=== PATIENT | female | born 1930 | race Caucasian/White ===

== ENCOUNTER 2016-11-28 09:25 | Emergency (ER) | payer MEDICARE, OTHER ==
[~2016-11-28] VITALS: Ht 167.6 cm; Wt 81.6 kg
[2016-11-28 09:36] VITALS: BP 132/88
== END 2016-11-28 12:05 | disposition home or self-care (01) ==
LOC: ER 09:26
DX: S39.012A Strain of muscle, fascia and tendon of lower back, initial encounter (principal); I10 Essential (primary) hypertension; E11.9 Type 2 diabetes mellitus without complications; X58.XXXA Exposure to other specified factors, initial encounter; Y93.E5 Activity, floor mopping and cleaning; Y92.89 Other specified places as the place of occurrence of the external cause; Y99.8 Other external cause status
CPT/HCPCS: 96372; 99283; A4606; J1885; Z7610

== ENCOUNTER 2017-01-31 17:47 | Emergency (ER) | payer MEDICARE, OTHER ==
[~2017-01-31] VITALS: Ht 170.2 cm; Wt 81.6 kg
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
[2017-01-31] MEDS ORDERED: HYDROCODONE/APAP 5/325MG 1 EACH TABLET ONE (18:17)
[2017-01-31] MEDS ORDERED: HYDROCODONE/APAP 5/325MG 1 EACH TABLET PO ONE (18:30)
--- NOTE | 2017-01-31 18:45 | NUR ---
PAINTER DRUM AT BEDSIDE
[2017-01-31 18:59] LABS: CALCIUM, SERUM 9.6 mg/dL (8.5-10.1); CARBON DIOXIDE 30 mmol/L (21-32); CHLORIDE 105 mmol/L (98-107); CREATININE 0.8 mg/dL (0.6-1.3); GLUCOSE 122 mg/dL (74-106); POTASSIUM 4.3 mmol/L (3.5-5.1); SODIUM SERUM 142 mmol/L (136-145); UREA NITROGEN, BLOOD 14 mg/dL (7-18)
[2017-01-31] MEDS ORDERED: IV NS 0.9% 1,000 ML BAG IV ONE (19:00)
[2017-01-31 19:18] LABS: ALANINE AMINOTRANSFERASE 33 U/L (12-78); ALBUMIN 4.1 g/dL (3.4-5.0); ALKALINE PHOSPHATASE 47 U/L (46-116); ASPARTATE AMINOTRANSFERASE 26 U/L (15-37); BILIRUBIN,TOTAL 0.6 mg/dL (0.2-1.0); TOTAL PROTEIN, SERUM 7.4 g/dL (6.4-8.2)
--- NOTE | 2017-01-31 19:25 | NUR ---
PT TAKEN TO CT
[2017-01-31] MEDS ORDERED: IOHEXOL-300 100 ML VIAL IV ONE (19:29)
[2017-01-31] MEDS ORDERED: IV NS 0.45% 500 ML IV ONE (19:29)
--- NOTE | 2017-01-31 19:45 | NUR ---
PT BACK FROM CT
[2017-01-31 20:38] VITALS: BP 143/84
--- NOTE | 2017-01-31 20:38 | NUR ---
Patient discharged to home in stable condition. Written and verbal after care instructions given. Patient verbalizes understanding of instruction.
--- NOTE | 2017-01-31 20:38 | NUR ---
IV removed. Catheter intact and site benign. Pressure and 4x4 applied to site. No bleeding noted.
== END 2017-01-31 20:43 | disposition home or self-care (01) ==
LOC: ER 17:48
DX: S20.219A Contusion of unspecified front wall of thorax, initial encounter (principal); R10.84 Generalized abdominal pain; I10 Essential (primary) hypertension; E11.9 Type 2 diabetes mellitus without complications; V89.2XXA Person injured in unspecified motor-vehicle accident, traffic, initial encounter; Y93.89 Activity, other specified; Y92.488 Other paved roadways as the place of occurrence of the external cause; Y99.8 Other external cause status
CPT/HCPCS: 36415; 70450; 71010; 71260; 74160; 80053; 96360; 99285; A4606; J3490; J7030; Q9967; Z7610

== ENCOUNTER 2018-02-09 20:19 | Emergency (ER) | payer MEDICARE, OTHER ==
[~2018-02-09] VITALS: Ht 167.6 cm; Wt 81.6 kg
[2018-02-09 20:56] VITALS: BP 127/81
--- NOTE | 2018-02-09 21:05 | NUR ---
PT BIBSELF C/O RIGHT EYE PAIN. PT STATES "I FEEL LIKE SOMETHING IS IN MY EYE". PT HAS DIFFICULTY OPENING EYE.
--- NOTE | 2018-02-09 22:20 | NUR ---
Patient left without being seen by ER Physician
[2018-02-09] MEDS ORDERED: TETRACAINE HCL/PF 0.5% UD 2 ML BOTTLE OP ONE (22:30)
== END 2018-02-09 22:43 | disposition left against medical advice (07) ==
LOC: ER 20:37
DX: I10 Essential (primary) hypertension (principal); E11.9 Type 2 diabetes mellitus without complications; E03.9 Hypothyroidism, unspecified; Z85.3 Personal history of malignant neoplasm of breast; Z98.890 Other specified postprocedural states; Z98.49 Cataract extraction status, unspecified eye; Z53.21 Procedure and treatment not carried out due to patient leaving prior to being seen by health care provider
CPT/HCPCS: A4606; J7030; Z7610

== ENCOUNTER 2018-11-19 21:41 | Emergency (ER) | payer MEDICARE, OTHER ==
[~2018-11-19] VITALS: Ht 170.2 cm; Wt 72.6 kg
--- NOTE | 2018-11-19 22:23 | NUR ---
LOU FROM HOME WITH DAELIOTTHER. AAOX4. NO RESP DISTRESS NOTED. AMBULATORY. C/O GEN WEAKNESS AND CHEST PAIN. PT REPORTS THAT SHE HAS BEEN FEELING WEAK FOR THE PAST 2 MONTHS. SHE ALSO COMPLAINTS OF CHEST PAIN 6/10 REPORT FEELING OF MUSCLE ACHE. SHE ALSO COMPLAINS OF BACK PAIN WHICH ALSO FEELIN GLIKE A MUSCLE ACHE. PT PLACED ON MONITOR. AWAITING MF FOR EVAL. EKG DONE. LINE OBTAINED ON L AC 20G. BLOOD DRAWN AND SETN TO LAB. AWAITING FURTHER ORDERS
[2018-11-19 22:26] LABS: EOSINOPHILS % (AUTO) 1.3 % (0.0-6.0); HEMATOCRIT 40 % (33-45); HEMOGLOBIN 13.3 g/dL (11.5-14.8); LYMPHOCYTES # (AUTO) 1.7 /CMM (0.8-4.8); LYMPHOCYTES % (AUTO) 36.7 % (20.0-44.0); MEAN CORPUSCULAR HGB CONC 34 g/dl (31.0-36.0); MEAN CORPUSCULAR VOLUME 88 fL (82-100); MONOCYTES # (AUTO) 0.4 /CMM (0.1-1.30); MONOCYTES % (AUTO) 9.5 % (2.0-12.0); NEUTROPHILS # (AUTO) 2.4 /CMM (1.8-8.9); NEUTROPHILS % (AUTO) 51.5 % (43.0-81.0); PLATELET COUNT (AUTO) 214 /CMM (150-450); RED BLOOD CELL COUNT(AUTO) 4.54 MIL/uL (4.0-5.2); WHITE BLOOD COUNT (AUTO) 4.6 K/uL (4.3-11.0)
[2018-11-19 22:40] LABS: CALCIUM, SERUM 10.3 mg/dL (8.5-10.1); CARBON DIOXIDE 31 mmol/L (21-32); CHLORIDE 106 mmol/L (98-107); CREATININE 0.8 mg/dL (0.6-1.3); GLUCOSE 108 mg/dL (74-106); SODIUM SERUM 143 mmol/L (136-145); UREA NITROGEN, BLOOD 16 mg/dL (7-18)
[2018-11-19 22:59] LABS: ALANINE AMINOTRANSFERASE 26 U/L (12-78); ALKALINE PHOSPHATASE 80 U/L (46-116); ASPARTATE AMINOTRANSFERASE 17 U/L (15-37); B-TYPE NATRIURETIC PEPTIDE 62 PG/ML (0-125); BILIRUBIN,DIRECT 0.1 mg/dL (0.0-0.2); BILIRUBIN,TOTAL 0.4 mg/dL (0.2-1.0); TOTAL PROTEIN, SERUM 7.6 g/dL (6.4-8.2)
--- NOTE | 2018-11-19 23:44 | NUR ---
Patient discharged to home in stable condition. Written and verbal after care instructions given. Patient verbalizes understanding of instruction.IV removed. Catheter intact and site benign. Pressure and 4x4 applied to site. No bleeding noted. Pt ambulatory with a steady gait
[2018-11-19 23:45] VITALS: BP 117/80
== END 2018-11-19 23:45 | disposition home or self-care (01) ==
LOC: ER 21:45
DX: R53.1 Weakness (principal); I10 Essential (primary) hypertension; E11.9 Type 2 diabetes mellitus without complications; E03.9 Hypothyroidism, unspecified; Z85.3 Personal history of malignant neoplasm of breast; Z98.890 Other specified postprocedural states
CPT/HCPCS: 36415; 71045-TC; 80048-TC; 80076-TC; 83880; 84484-TC; 85025-TC; 85730-TC

== ENCOUNTER 2021-03-05 17:53 | Inpatient (IN) | payer MEDICARE, OTHER ==
[~2021-03-05] VITALS: Ht 165.1 cm; Wt 78.5 kg
--- NOTE | 2021-03-05 18:08 | NUR ---
TO ER BED 5, C/O FEVER, COUGH AND WORSENING SOB X 4 DAYS, AAOX3, BREATHING EVEN AND NON LABORED, CONNECTED TO MONITOR, APPLIED O2 2LPM, SATTING AT 98%.
[2021-03-05] MEDS ORDERED: DEXAMETHASONE SOD PHOSPHATE 6 MG in IV D5W 50 ML IV ONE (18:30)
--- NOTE | 2021-03-05 18:56 | NUR ---
FAMILY KAM CALLED AND LEFT CONTACT # [phone]
--- NOTE | 2021-03-05 19:05 | NUR ---
COVID ANTIGEN SWAB AND FLU SWAB DONE AND SENT TO LAB
--- NOTE | 2021-03-05 19:07 | NUR ---
COVID PCR SWAB DONE AND SENT
[2021-03-05] MEDS ORDERED: DEXAMETHASONE SOD PHOSPHATE 10 MG/ML VIAL ONE (19:18)
--- NOTE | 2021-03-05 19:26 | NUR ---
VERIFIED WITH DR SAYDA SUERO DECADRON IV PUSH 6MG.
[2021-03-05 19:42] LABS: D-DIMER 1.63 mg/L(FEU (0.17-0.50)
[2021-03-05 19:46] LABS: CREATINE KINASE, TOTAL 104 U/L (26-192)
[2021-03-05 19:48] LABS: C-REACTIVE PROTEIN 38.3 mg/dL (0.0-0.9)
--- NOTE | 2021-03-05 20:01 | NUR ---
COVID POSITIVE PER LAB
[2021-03-05 20:10] LABS: CALCIUM, SERUM 9.1 mg/dL (8.5-10.1); CARBON DIOXIDE 24 mmol/L (21-32); CHLORIDE 100 mmol/L (98-107); CREATININE 0.7 mg/dL (0.6-1.3); GLUCOSE 124 mg/dL (74-106); POTASSIUM 3.4 mmol/L (3.5-5.1); SODIUM SERUM 136 mmol/L (136-145); UREA NITROGEN, BLOOD 12 mg/dL (7-18)
[2021-03-05 20:17] LABS: BASOPHILS % (AUTO) 0.2 % (0.0-2.0); EOSINOPHILS % (AUTO) 0.3 % (0.0-6.0); HEMATOCRIT 35 % (33-45); LYMPHOCYTES # (AUTO) 0.4 K/uL (0.8-4.8); MEAN CORPUSCULAR HGB CONC 34 g/dl (31.0-36.0); MEAN CORPUSCULAR VOLUME 85 fL (82-100); MONOCYTES # (AUTO) 0.5 K/uL (0.1-1.30); NEUTROPHILS # (AUTO) 4.2 K/uL (1.8-8.9); NEUTROPHILS % (AUTO) 81.5 % (43.0-81.0); PLATELET COUNT (AUTO) 205 K/uL (150-450); RED BLOOD CELL COUNT(AUTO) 4.16 MIL/uL (4.0-5.2); WHITE BLOOD COUNT (AUTO) 5.1 K/uL (4.3-11.0)
[2021-03-05 20:23] LABS: ALANINE AMINOTRANSFERASE 17 U/L (12-78); ALKALINE PHOSPHATASE 49 U/L (46-116); ASPARTATE AMINOTRANSFERASE 26 U/L (15-37); BILIRUBIN,TOTAL 0.6 mg/dL (0.2-1.0); TOTAL PROTEIN, SERUM 7.1 g/dL (6.4-8.2)
[2021-03-05] MEDS ORDERED: MAGNESIUM HYDROXIDE 30 ML UDC PO PRN (21:30)
[2021-03-05] MEDS ORDERED: MAG HYDROX/AL HYDROX/SIMETH 30 ML UDC PO PRN (21:30)
[2021-03-05] MEDS ORDERED: ONDANSETRON HCL/PF 4 MG/2 ML VIAL IVP PRN (21:30)
[2021-03-05] MEDS ORDERED: Z GUARD REMEDY 4 OZ OINT TP PRN (21:30)
[2021-03-05] MEDS ORDERED: ACETAMINOPHEN 325 MG TABLET PO PRN (21:30)
--- NOTE | 2021-03-05 23:51 | NUR ---
ROOM 115-2
--- NOTE | 2021-03-06 00:54 | NUR ---
REPORT GIVEN TO JESSICA HDZ
--- NOTE | 2021-03-06 01:28 | NUR ---
PT TRANSFERRED UNDER ACLS
--- NOTE | 2021-03-06 01:35 | NUR ---
STRUCTURAL STEEL EQUIPMENT ERECTOR NOTES PATIENT ARRIVED ON UNIT WITH ER NURSE VIA CORY. PATIENT LAYING AWAKE IN BED. A/OX4. PATIENT WITH REGULAR AND UNLABORED BREATHING ON 3 LPM VIA NASAL CANULA, TOLERATED WELL. NO SIGNS AND SYMPTOMS OF DISTRESS NOTED AT THIS TIME. NO COMPLAINS OF PAIN OR DISCOMFORT NOTED AT THIS TIME. IV ACCESS LFA G #20 SL. IV ACCESS PATENT AND INTACT. SAFETY PRECAUTIONS ENFORCED WITH BED LOCKED AND AT LOWEST POSITION. SIDERAILS UP X2. CALL LIGHT WITHIN REACH AT ALL TIMES. WILL CONTINUE TO MONITOR PATIENT.
[2021-03-06 04:00] VITALS: BP 146/93
--- NOTE | 2021-03-06 06:50 | NUR ---
ORDNANCE HANDLER CLOSING NOTES PATIENT STILL LAYING AWAKE IN BED. A/OX4. PATIENT WITH REGULAR AND UNLABORED BREATHING ON 3 LPM VIA NASAL CANULA, TOLERATED WELL. NO SIGNS AND SYMPTOMS OF DISTRESS NOTED AT THIS TIME. NO COMPLAINS OF PAIN OR DISCOMFORT NOTED AT THIS TIME. IV ACCESS LFA G #20 SL. IV ACCESS PATENT AND INTACT. SAFETY PRECAUTIONS ENFORCED WITH BED LOCKED AND AT LOWEST POSITION. SIDERAILS UP X2. CALL LIGHT WITHIN REACH AT ALL TIMES. WILL ENDORSE CONTINUITY OF CARE TO DAY SHIFT NURSE.
[2021-03-06 07:42] LABS: BASOPHILS % (AUTO) 0.1 % (0.0-2.0); HEMATOCRIT 37 % (33-45); HEMOGLOBIN 12.4 g/dL (11.5-14.8); LYMPHOCYTES # (AUTO) 0.3 K/uL (0.8-4.8); LYMPHOCYTES % (AUTO) 6.6 % (20.0-44.0); MEAN CORPUSCULAR HGB CONC 34 g/dl (31.0-36.0); MEAN CORPUSCULAR VOLUME 84 fL (82-100); MONOCYTES # (AUTO) 0.3 K/uL (0.1-1.30); MONOCYTES % (AUTO) 8.2 % (2.0-12.0); NEUTROPHILS # (AUTO) 3.5 K/uL (1.8-8.9); NEUTROPHILS % (AUTO) 85.1 % (43.0-81.0); PLATELET COUNT (AUTO) 246 K/uL (150-450); RED BLOOD CELL COUNT(AUTO) 4.38 MIL/uL (4.0-5.2); WHITE BLOOD COUNT (AUTO) 4.2 K/uL (4.3-11.0)
[2021-03-06 08:00] VITALS: BP 160/94
--- NOTE | 2021-03-06 08:00 | NUR ---
MUSIC JOURNALIST NOTES PATIENT IN BED , ALERT ORIENTED AWAKE IN BED. A/OX4. PATIENT WITH REGULAR AND UNLABORED BREATHING ON 3 LPM VIA NASAL CANULA, TOLERATED WELL. NO SIGNS AND SYMPTOMS OF DISTRESS NOTED AT THIS TIME. NO COMPLAINS OF PAIN OR DISCOMFORT NOTED AT THIS TIME. IV ACCESS LFA G #20 SL. IV ACCESS PATENT AND INTACT. SAFETY PRECAUTIONS ENFORCED WITH BED LOCKED AND AT LOWEST POSITION. SIDERAILS UP X2. CALL LIGHT WITHIN REACH AT ALL TIMES. ON TELE MONITOR SR HR 72 WILL MONITOR
[2021-03-06 08:07] LABS: CALCIUM, SERUM 9.4 mg/dL (8.5-10.1); CREATININE 0.7 mg/dL (0.6-1.3); MAGNESIUM 2.4 mg/dL (1.8-2.4); PHOSPHORUS 2.2 mg/dL (2.5-4.9)
[2021-03-06] MEDS: DEXAMETHASONE SOD PHOSPHATE 10 MG/ML VIAL IV SCH (08:38)
[2021-03-06] MEDS ORDERED: DEXAMETHASONE SOD PHOSPHATE 6 MG in IV D5W 50 ML IV SCH (09:00)
[2021-03-06] MEDS ORDERED: K PHOS NEUTRAL 250 MG TABLET PO ONE (10:30)
[2021-03-06] MEDS ORDERED: METH5TAB6 PO (11:26)
[2021-03-06] MEDS ORDERED: OLME1TAB92 PO (11:26)
[2021-03-06] MEDS ORDERED: METF-440 PO (11:26)
[2021-03-06 12:00] VITALS: BP 156/84
--- NOTE | 2021-03-06 13:00 | NUR ---
telecommunication lines repairer note 2decho done as ordered ,all needs attended asked to dr parry about home meds to start for blood pressure , order carried out
[2021-03-06] MEDS ORDERED: REMDESIVIR (CHARGED) 200 MG, *LOADING DOSE 1 EA in IV NS 0.9% 210 ML IV ONE (15:00)
--- NOTE | 2021-03-06 15:55 | NUR ---
telecommunication lines repairer note new hl on rt fa [id number] inferred with good blood return
[2021-03-06 16:00] VITALS: BP 160/65
[2021-03-06] MEDS: HYDROCHLOROTHIAZIDE PO SCH (16:23)
[2021-03-06] MEDS: OLMESARTAN PO SCH (16:23)
--- NOTE | 2021-03-06 18:30 | NUR ---
PLAYGROUND EQUIPMENT ERECTOR NOTE RESTING COMFORTABLY AT THIS TIME ,REFUSED TO EAT DINNER FOR NOW ON TELE MONITOR SR HR 77, ON 3L NC OF O2, NO SOB NOTED AT THIS TIME BED IN LOWEST AND LOCKED POSITION, CALL LIGHT WITHE REACH, WILL MONITOR CLOSELY
--- NOTE | 2021-03-06 19:35 | NUR ---
RN NOTE PT RECEIVED IN BED. PT IS ON 3L OF O2 VIA NC SHOWING NO S/S OF RESP DISTRESS. BREATHING EVEN AND UNLABORED. PT IS ALERT AND ORIENTED X4, AZERI SPEAKING. ON FABRIC DESIGNER SHOWING SR. IV ACCESS INTACT AND PATENT WITH NO SIGNS OF INFILTRATION. ALL SAFETY MEASURES IMPLEMENTED. CALL LIGHT WITHIN REACH. BED ALARM ON. BED LOCKED AND IN LOWEST POSITION. SIDE RAILS UP. WILL CONTINUE TO MONITOR AND ASSESS FOR ANY CHANGES DURING SHIFT.
[2021-03-06 20:00] VITALS: BP 152/93
[2021-03-06] MEDS: ENOXAPARIN SODIUM 40 MG/0.4 ML DISP.SYRIN SQ SCH ×3 (20:13→21:31)
--- NOTE | 2021-03-06 20:20 | NUR ---
RN NOTE PT REFUSED SCHEDULED MEDICATION OF LOVENOX. EXPLAINED RISKS/BENEFITS OF LOVENOX TO PATIENT, BUT PT KEPT REFUSING. WILL CONTINUE TO MONITOR.
--- NOTE | 2021-03-06 21:31 | NUR ---
RN NOTE PT NOW STATING SHE SPOKE WITH FAMILY ABOUT LOVENOX AND WANTS TO TAKE MEDICATION NOW STATING IT IS IMPORTANT. WILL ADMINISTER SCHEDULED 2100 MEDICATION.
[2021-03-07] VITALS (7 sets, daily range): BP systolic 139–158; BP diastolic 70–79
--- NOTE | 2021-03-07 06:46 | NUR ---
RN NOTE NO CHANGES IN PT CONDITION DURING SHIFT. PT IS ON 3L OF O2 VIA NC SHOWING NO S/S OF RESP DISTRESS. BREATHING EVEN AND UNLABORED. PT IS ALERT AND ORIENTED X4, TANZANIAN SPEAKING. ON COMMERCIAL PRODUCER SHOWING SR. IV ACCESS INTACT AND PATENT WITH NO SIGNS OF INFILTRATION. ALL DUE MEDS GIVEN ORDERED. PT KEPT CLEAN AND COMFORTABLE. ALL SAFETY MEASURES IMPLEMENTED. CALL LIGHT WITHIN REACH. BED ALARM ON. BED LOCKED AND IN LOWEST POSITION. SIDE RAILS UP. WILL ENDORSE TO MORNING SHIFT RN FOR JAMEE.
[2021-03-07 08:34] LABS: BASOPHILS % (AUTO) 0.2 % (0.0-2.0); EOSINOPHILS % (AUTO) 0.1 % (0.0-6.0); HEMATOCRIT 38 % (33-45); HEMOGLOBIN 12.7 g/dL (11.5-14.8); LYMPHOCYTES # (AUTO) 0.6 K/uL (0.8-4.8); LYMPHOCYTES % (AUTO) 8.3 % (20.0-44.0); MEAN CORPUSCULAR HGB CONC 34 g/dl (31.0-36.0); MEAN CORPUSCULAR VOLUME 85 fL (82-100); MONOCYTES # (AUTO) 0.8 K/uL (0.1-1.30); MONOCYTES % (AUTO) 11.7 % (2.0-12.0); NEUTROPHILS # (AUTO) 5.4 K/uL (1.8-8.9); NEUTROPHILS % (AUTO) 79.7 % (43.0-81.0); PLATELET COUNT (AUTO) 282 K/uL (150-450); RED BLOOD CELL COUNT(AUTO) 4.46 MIL/uL (4.0-5.2); WHITE BLOOD COUNT (AUTO) 6.8 K/uL (4.3-11.0)
[2021-03-07 09:37] LABS: BILIRUBIN,DIRECT 0.2 mg/dL (0.0-0.2); BILIRUBIN,TOTAL 0.5 mg/dL (0.2-1.0); CALCIUM, SERUM 9.8 mg/dL (8.5-10.1); CREATININE 0.8 mg/dL (0.6-1.3); POTASSIUM 3.5 mmol/L (3.5-5.1); TOTAL PROTEIN, SERUM 7.6 g/dL (6.4-8.2)
[2021-03-07] MEDS: DEXAMETHASONE SOD PHOSPHATE 10 MG/ML VIAL IV SCH (09:50)
--- NOTE | 2021-03-07 13:55 | NUR ---
RECEIVED PT ASLEEP IN BED, PT IS ON 3L OF O2 VIA NC SHOWING NO S/S OF RESP DISTRESS. BREATHING EVEN AND UNLABORED. ALERT AND ORIENTED X4, COOPERATIVE WITH CARE, TAKING PO MEDS WHOLE WITH WATER NO ASPIRATION NOTED AT THIS TIME, ABLE TO REPOSITION SELF NEEDED AND MAKE ALL NEEDS KNOW, ON VETERINARY RECEPTIONIST SHOWING SR. IV ACCESS INTACT FLUSHED, PATENT - NO SIGNS/S OF IRRITATION NO INFILTRATION. ALL DUE MEDS GIVEN ORDERED. PT KEPT CLEAN AND COMFORTABLE. ALL SAFETY MEASURES IMPLEMENTED. CALL LIGHT WITHIN REACH. BED ALARM ON. BED LOCKED AND IN LOWEST POSITION. 2 SIDE RAILS UP. WILL ENDORSE TO MORNING SHIFT RN FOR JAMEE.
[2021-03-07] MEDS: HYDROCHLOROTHIAZIDE PO SCH (16:31)
[2021-03-07] MEDS: OLMESARTAN PO SCH (16:31)
[2021-03-07] MEDS: REMDESIVIR (CHARGED) 100 MG in IV NS 0.9% 100 ML IV SCH (16:32)
--- NOTE | 2021-03-07 19:35 | NUR ---
RN OPENING NOTES, RECEIVED PATENT IN BED, SITTING POSITION, ALERT, ORIENTED X4, VERBALLY RESPONSIVE. ON 3L VIA NC AND TOLERATED WELL. BREATHING EVEN AND UNLABORED. MONEGASQUE SPEAKING. ON DATABASE ENGINEER SHOWING SR. IV ACCESS ON RFA #24 AND LFA#18, INTACT AND PATENT WITH NO SIGNS OF INFILTRATION. NO C/O PAIN OR DISCOMFORT. NO ACUTE DISTRESS. ALL SAFETY MEASURES IN PLACE. PLACE CALL LIGHT WITHIN REACH. BED ALARM ON. BED LOCKED AND IN LOWEST POSITION. BOTH SIDE RAILS UP. WILL CONTINUE TO MONITOR.
[2021-03-07] MEDS: ENOXAPARIN SODIUM 40 MG/0.4 ML DISP.SYRIN SQ SCH (21:00)
[2021-03-08] VITALS: BP 128/65
[2021-03-08 04:00] VITALS: BP 140/70
--- NOTE | 2021-03-08 06:35 | NUR ---
RN CLOSING NOTES, PATENT SLEEPING IN BED, BUT EASILY AROUSABLE, A/O X4, VERBALLY RESPONSIVE. ON 3L VIA N/C, O2 SAT 92% AND TOLERATED WELL. BREATHING EVEN AND UNLABORED. TURKS AND [place] ISLANDER SPEAKING. ON ADVERTISING MATERIAL DISTRIBUTOR. IV ACCESS ON RFA #24 AND LFA#18, INTACT AND PATENT, NO SIGNS OF INFILTRATION. NO C/O PAIN OR DISCOMFORT. NO ACUTE DISTRESS. DUE MEDS GIVEN ORDERED. ALL SAFETY MEASURES IN PLACE. PLACE CALL LIGHT WITHIN REACH. BED ALARM ON. BED LOCKED AND IN LOWEST POSITION. BOTH SIDE RAILS UP X2, WILL ENDORSE TO MORNING SHIFT NURSE.
--- NOTE | 2021-03-08 07:22 | NUR ---
RN OPENING NOTES, RECEIVED PATENT RESTING IN BED VERBALLY RESPONSIVE. ON 3L VIA NC AND TOLERATED WELL. BREATHING EVEN AND UNLABORED. GEORGIAN SPEAKING. ON PIPE CHIPPER. IV ACCESS ON RFA #24 AND LFA#18, INTACT WITH NO SIGNS OF INFILTRATION. NO C/O PAIN OR DISCOMFORT. NO ACUTE DISTRESS. ALL SAFETY MEASURES IN PLACE. PLACE CALL LIGHT WITHIN REACH. BED ALARM ON. BED LOCKED AND IN LOWEST POSITION. BOTH SIDE RAILS UP.
[2021-03-08 08:00] VITALS: BP 119/73
[2021-03-08 08:42] LABS: BASOPHILS % (AUTO) 0.1 % (0.0-2.0); EOSINOPHILS % (AUTO) 0.1 % (0.0-6.0); HEMATOCRIT 36 % (33-45); HEMOGLOBIN 12.2 g/dL (11.5-14.8); LYMPHOCYTES # (AUTO) 0.7 K/uL (0.8-4.8); MEAN CORPUSCULAR HGB CONC 34 g/dl (31.0-36.0); MEAN CORPUSCULAR VOLUME 84 fL (82-100); MONOCYTES # (AUTO) 0.6 K/uL (0.1-1.30); MONOCYTES % (AUTO) 9.7 % (2.0-12.0); NEUTROPHILS # (AUTO) 5.3 K/uL (1.8-8.9); NEUTROPHILS % (AUTO) 80.1 % (43.0-81.0); PLATELET COUNT (AUTO) 318 K/uL (150-450); RED BLOOD CELL COUNT(AUTO) 4.29 MIL/uL (4.0-5.2); WHITE BLOOD COUNT (AUTO) 6.6 K/uL (4.3-11.0)
[2021-03-08 08:55] LABS: ALBUMIN 2.8 g/dL (3.4-5.0); BILIRUBIN,TOTAL 0.3 mg/dL (0.2-1.0); CALCIUM, SERUM 9.7 mg/dL (8.5-10.1); MAGNESIUM 2.3 mg/dL (1.8-2.4); PHOSPHORUS 2.7 mg/dL (2.5-4.9); POTASSIUM 2.9 mmol/L (3.5-5.1); TOTAL PROTEIN, SERUM 7.3 g/dL (6.4-8.2)
[2021-03-08] MEDS: OLMESARTAN PO SCH (09:23)
[2021-03-08] MEDS: HYDROCHLOROTHIAZIDE PO SCH (09:23)
[2021-03-08] MEDS: DEXAMETHASONE SOD PHOSPHATE 10 MG/ML VIAL IV SCH (09:23)
--- NOTE | 2021-03-08 10:18 | NUR ---
RN NOTE SPOKE WITH PATIENTS GRANDSON. GAVE UPDATE ON PATIENTS CURRENT O2 SAT AND MEDICATION PLAN
[2021-03-08] MEDS: POTASSIUM CHLORIDE 20 MEQ TAB.PRT.SR PO SCH ×3 (11:10→13:37)
[2021-03-08 12:00] VITALS: BP 138/66
[2021-03-08 13:48] LABS: ALBUMIN 2.8 g/dL (3.4-5.0); BILIRUBIN,DIRECT 0.2 mg/dL (0.0-0.2); BILIRUBIN,TOTAL 0.3 mg/dL (0.2-1.0); CALCIUM, SERUM 9.4 mg/dL (8.5-10.1); POTASSIUM 3.1 mmol/L (3.5-5.1); TOTAL PROTEIN, SERUM 7.3 g/dL (6.4-8.2)
[2021-03-08] MEDS: REMDESIVIR (CHARGED) 100 MG in IV NS 0.9% 100 ML IV SCH (15:22)
[2021-03-08 16:00] VITALS: BP 122/70
--- NOTE | 2021-03-08 18:46 | NUR ---
RN CLOSING NOTES, RECEIVED PATENT RESTING IN BED VERBALLY RESPONSIVE. ON ROOM AIR BREATHING EVEN AND UNLABORED. GUAMANIAN SPEAKING. ON CRUSHER DRY GROUND MICA. IV ACCESS ON RFA #24 AND LFA#18, INTACT WITH NO SIGNS OF INFILTRATION. NO C/O PAIN OR DISCOMFORT. NO ACUTE DISTRESS. ALL SCHEDULED MEDICATIONS WERE GIVEN. ALL SAFETY MEASURES IN PLACE. PLACE CALL LIGHT WITHIN REACH. BED ALARM ON. BED LOCKED AND IN LOWEST POSITION. BOTH SIDE RAILS UP.
--- NOTE | 2021-03-08 19:47 | NUR ---
RN OPENING NOTES, RECEIVED PATENT IN BED, SITTING POSITION, ALERT, ORIENTED X4, VERBALLY RESPONSIVE. ON ROOM AIR AND TOLERATED WELL. BREATHING EVEN AND UNLABORED. BERMUDIAN SPEAKING. ON ORDER TAKERS SUPERVISOR. IV ACCESS ON RFA #24G INTACT AND PATENT. NO S/S OF INFILTRATION. NO C/O PAIN OR DISCOMFORT. NO ACUTE DISTRESS. ALL SAFETY MEASURES IN PLACE. PLACE CALL LIGHT WITHIN REACH. BED LOCKED AND IN LOWEST POSITION. BOTH SIDE RAILS UP. WILL CONTINUE TO MONITOR.
[2021-03-08 20:00] VITALS: BP 134/86
[2021-03-08] MEDS: ENOXAPARIN SODIUM 40 MG/0.4 ML DISP.SYRIN SQ SCH (20:33)
[2021-03-08] MEDS: ZOLPIDEM TARTRATE 5 MG TABLET PO PRN (23:36)
--- NOTE | 2021-03-08 23:37 | NUR ---
RN NOTES: PT C/O UNABLE TO SLEEP. AMBIEN 5MG TAB GIVEN PER PRN ORDER AND PT TOLERATED WELL. WILL CONTINUE TO MONITOR
[2021-03-09] VITALS: BP 134/66
[2021-03-09 04:00] VITALS: BP 142/76
--- NOTE | 2021-03-09 06:27 | NUR ---
RN CLOSING NOTES, PATENT SLEEPING IN BED, BUT EASILY AROUSABLE, A/O X4, VERBALLY RESPONSIVE. ON 3L VIA N/C, O2 SAT 91% AND TOLERATED WELL. BREATHING EVEN AND UNLABORED. CITIZEN OF [place] SPEAKING. ON DUAL HOSE CEMENTER SHOWING SINUS RHYTHM. IV ACCESS ON RFA #24G, INTACT AND PATENT, NO SIGNS OF INFILTRATION. NO C/O PAIN OR DISCOMFORT. NO ACUTE DISTRESS. DUE MED GIVEN ORDERED. ALL SAFETY MEASURES IN PLACE. PLACE CALL LIGHT WITHIN REACH. BED LOCKED AND IN LOWEST POSITION. BOTH SIDE RAILS UP X2, WILL ENDORSE TO MORNING SHIFT NURSE.
[2021-03-09 07:37] LABS: BASOPHILS % (AUTO) 0.1 % (0.0-2.0); EOSINOPHILS % (AUTO) 0.8 % (0.0-6.0); HEMATOCRIT 36 % (33-45); HEMOGLOBIN 12.4 g/dL (11.5-14.8); LYMPHOCYTES % (AUTO) 12.8 % (20.0-44.0); MEAN CORPUSCULAR HGB CONC 34 g/dl (31.0-36.0); MEAN CORPUSCULAR VOLUME 84 fL (82-100); MONOCYTES # (AUTO) 0.7 K/uL (0.1-1.30); MONOCYTES % (AUTO) 9.9 % (2.0-12.0); NEUTROPHILS # (AUTO) 5.7 K/uL (1.8-8.9); NEUTROPHILS % (AUTO) 76.4 % (43.0-81.0); PLATELET COUNT (AUTO) 361 K/uL (150-450); RED BLOOD CELL COUNT(AUTO) 4.27 MIL/uL (4.0-5.2); WHITE BLOOD COUNT (AUTO) 7.4 K/uL (4.3-11.0)
[2021-03-09 08:00] VITALS: BP 140/83
[2021-03-09 08:25] LABS: ALBUMIN 2.8 g/dL (3.4-5.0); BILIRUBIN,DIRECT 0.2 mg/dL (0.0-0.2); BILIRUBIN,TOTAL 0.4 mg/dL (0.2-1.0); CALCIUM, SERUM 9.5 mg/dL (8.5-10.1); CREATININE 0.8 mg/dL (0.6-1.3); POTASSIUM 3.7 mmol/L (3.5-5.1); TOTAL PROTEIN, SERUM 7.2 g/dL (6.4-8.2)
[2021-03-09] MEDS: HYDROCHLOROTHIAZIDE PO SCH (09:38)
[2021-03-09] MEDS: DEXAMETHASONE SOD PHOSPHATE 10 MG/ML VIAL IV SCH (09:38)
[2021-03-09] MEDS: OLMESARTAN PO SCH (09:38)
--- NOTE | 2021-03-09 10:09 | NUR ---
RN OPENING NOTES RECEIVED PATENT IN BED, SITTING POSITION, ALERT, ORIENTED X4, VERBALLY RESPONSIVE. ON 3L NC WITH O2 SAT OF 94%. BREATHING EVEN AND UNLABORED. HONDURAN SPEAKING. ON SLEEVE TURNER. IV ACCESS ON RFA #24G INTACT AND PATENT. NO S/S OF INFILTRATION. NO C/O PAIN OR DISCOMFORT. NO ACUTE DISTRESS. ALL SAFETY MEASURES IN PLACE. PLACE CALL LIGHT WITHIN REACH. BED LOCKED AND IN LOWEST POSITION. SIDE RAILS UP X2 . WILL CONTINUE TO MONITOR.
[2021-03-09 12:00] VITALS: BP 138/80
[2021-03-09 16:00] VITALS: BP 126/60
[2021-03-09] MEDS: REMDESIVIR (CHARGED) 100 MG in IV NS 0.9% 100 ML IV SCH (16:01)
--- NOTE | 2021-03-09 19:44 | NUR ---
RN CLOSING NOTES PATENT SLEEPING IN BED, BUT EASILY AROUSABLE, A/O X4, VERBALLY RESPONSIVE. ON 3L VIA N/C, O2 SAT 91% AND TOLERATED WELL. BREATHING EVEN AND UNLABORED. SINHALA SPEAKING. ON SOFTWARE RELEASE ENGINEER SHOWING SINUS RHYTHM. IV ACCESS ON RFA #24G, INTACT AND PATENT, NO SIGNS OF INFILTRATION. NO C/O PAIN OR DISCOMFORT. NO ACUTE DISTRESS. DUE MED GIVEN ORDERED. ALL SAFETY MEASURES IN PLACE. PLACE CALL LIGHT WITHIN REACH. BED LOCKED AND IN LOWEST POSITION. BOTH SIDE RAILS UP X2, WILL ENDORSE TO TIRE REPAIRMAN NURSE.
[2021-03-09 20:00] VITALS: BP 116/55
--- NOTE | 2021-03-09 20:00 | NUR ---
FEATHER WASHER NOTES, RECEIVED PATENT IN BED, ALERT, ORIENTED X4, VERBALLY RESPONSIVE. ON 3LITERS OF O2 VIA NC .SATING 95% AND TOLERATED WELL. BREATHING EVEN AND UNLABORED. ON TELE MONITOR.SR -78 IV ACCESS ON RFA #24G INTACT AND PATENT. NO S/S OF INFILTRATION. NO C/O PAIN OR DISCOMFORT. NO ACUTE DISTRESS , DUE MEDS GIVEN ORDER. ALL SAFETY MEASURES IN PLACE. PLACE CALL LIGHT WITHIN REACH. BED LOCKED AND IN LOWEST POSITION. BOTH SIDE RAILS UP. WILL CONTINUE TO MONITOR.
[2021-03-09] MEDS: ENOXAPARIN SODIUM 40 MG/0.4 ML DISP.SYRIN SQ SCH (21:16)
[2021-03-09] MEDS: ZOLPIDEM TARTRATE 5 MG TABLET PO PRN (23:58)
[2021-03-10] VITALS: BP 133/84
[2021-03-10 04:00] VITALS: BP 130/74
[2021-03-10 07:02] LABS: ALBUMIN 2.7 g/dL (3.4-5.0); BILIRUBIN,DIRECT 0.2 mg/dL (0.0-0.2); BILIRUBIN,TOTAL 0.5 mg/dL (0.2-1.0); CALCIUM, SERUM 9.6 mg/dL (8.5-10.1); CREATININE 0.8 mg/dL (0.6-1.3); POTASSIUM 4.2 mmol/L (3.5-5.1); TOTAL PROTEIN, SERUM 8.2 g/dL (6.4-8.2)
[2021-03-10 07:12] LABS: BASOPHILS % (AUTO) 0.2 % (0.0-2.0); HEMATOCRIT 36 % (33-45); HEMOGLOBIN 12.5 g/dL (11.5-14.8); LYMPHOCYTES # (AUTO) 0.9 K/uL (0.8-4.8); LYMPHOCYTES % (AUTO) 13.7 % (20.0-44.0); MEAN CORPUSCULAR HGB CONC 35 g/dl (31.0-36.0); MEAN CORPUSCULAR VOLUME 86 fL (82-100); MONOCYTES # (AUTO) 0.7 K/uL (0.1-1.30); MONOCYTES % (AUTO) 10.1 % (2.0-12.0); NEUTROPHILS # (AUTO) 4.9 K/uL (1.8-8.9); PLATELET COUNT (AUTO) 367 K/uL (150-450); RED BLOOD CELL COUNT(AUTO) 4.21 MIL/uL (4.0-5.2); WHITE BLOOD COUNT (AUTO) 6.6 K/uL (4.3-11.0)
--- NOTE | 2021-03-10 07:15 | NUR ---
telecine operator notes Received pts in bed a/ox4 on 3l 02 via nc , sating 96% no sob no distress noted . no errol at this time , will endorse to rn day shift for continuity of care.
--- NOTE | 2021-03-10 07:31 | NUR ---
RN OPENING NOTES RECEIVED PATENT IN BED, ALERT AND ORIENTED X4, VERBALLY RESPONSIVE. ON 3L NC WITH O2 SAT OF 96%. BREATHING EVEN AND UNLABORED. ALBANIAN SPEAKING. ON MEDICAL LIBRARIAN. IV ACCESS ON RFA #24G INTACT AND PATENT. NO S/S OF INFILTRATION. NO C/O PAIN OR DISCOMFORT. NO ACUTE DISTRESS. ALL SAFETY MEASURES IN PLACE. PLACE CALL LIGHT WITHIN REACH. BED LOCKED AND IN LOWEST POSITION. SIDE RAILS UP X2 . WILL CONTINUE TO MONITOR THROUGHOUT SHIFT.
[2021-03-10 08:00] VITALS: BP 127/76
[2021-03-10] MEDS: DEXAMETHASONE SOD PHOSPHATE 10 MG/ML VIAL IV SCH (09:26)
[2021-03-10] MEDS: OLMESARTAN PO SCH (09:27)
[2021-03-10] MEDS: HYDROCHLOROTHIAZIDE PO SCH (09:27)
[2021-03-10 12:00] VITALS: BP 122/76
--- NOTE | 2021-03-10 14:00 | NUR ---
ROOM AIR PULSE OX 85% NO FRACISCO AND BACK DIGGER OPERATOR WAS NOTIFIED
[2021-03-10] MEDS: REMDESIVIR (CHARGED) 100 MG in IV NS 0.9% 100 ML IV SCH (15:13)
[2021-03-10 16:00] VITALS: BP 114/61
--- NOTE | 2021-03-10 18:41 | NUR ---
RN CLOSING NOTES PATENT SLEEPING IN BED, BUT EASILY AROUSABLE, A/O X4, VERBALLY RESPONSIVE. ON 3L VIA N/C, O2 SAT 96%. BREATHING EVEN AND UNLABORED. TURKISH SPEAKING. ON FITNESS AND WELLNESS MANAGER SHOWING SINUS RHYTHM. IV ACCESS ON L HAND #24G, INTACT AND PATENT, NO SIGNS OF INFILTRATION. NO C/O PAIN OR DISCOMFORT. NO ACUTE DISTRESS. DUE MED GIVEN ORDERED. FINAL REMDESIVIR BAGS GIVEN. ALL SAFETY MEASURES IN PLACE. PLACE CALL LIGHT WITHIN REACH. BED LOCKED AND IN LOWEST POSITION. BOTH SIDE RAILS UP X2, WILL ENDORSE TO BED AND BREAKFAST INNKEEPER NURSE.
[2021-03-10 20:00] VITALS: BP 123/74
--- NOTE | 2021-03-10 20:00 | NUR ---
JEWEL HOLE CORNERER NOTES, RECEIVED PATENT IN BED IN SEMI FOWLERS POSITION . ALERT, ORIENTED X4, VERBALLY RESPONSIVE. ON 3LITERS OF O2 VIA NC .SATING 95% AND TOLERATED WELL. BREATHING EVEN AND UNLABORED. ON TELE MONITOR.SR -85. IV ACCESS ON LEFT HAND #22G INTACT AND PATENT. NO S/S OF INFILTRATION. NO C/O PAIN OR DISCOMFORT. NO ACUTE DISTRESS , DUE MEDS GIVEN ORDER. ALL SAFETY MEASURES IN PLACE. ALL PRECAUTIONARY OBSERVED AT ALL TIMES .PLACE CALL LIGHT WITHIN REACH. BED LOCKED AND IN LOWEST POSITION. BOTH SIDE RAILS UP. WILL CONTINUE TO MONITOR.
[2021-03-10] MEDS: ENOXAPARIN SODIUM 40 MG/0.4 ML DISP.SYRIN SQ SCH (20:44)
[2021-03-11] VITALS: BP 107/65
[2021-03-11] MEDS: ZOLPIDEM TARTRATE 5 MG TABLET PO PRN (01:10)
[2021-03-11 04:00] VITALS: BP 119/70
--- NOTE | 2021-03-11 06:36 | NUR ---
senior telecommunications engineer notes Received pts in bed a/ox4 on via nc , sating 97% no sob no distress noted . no errol at this time , will endorse to rn day shift for continuity of care.
--- NOTE | 2021-03-11 07:21 | NUR ---
RN OPENING NOTES RECEIVED PATENT IN BED, ALERT AND ORIENTED X4, VERBALLY RESPONSIVE. ON 3L NC WITH O2 SAT OF 97%. BREATHING EVEN AND UNLABORED. PORTUGUESE SPEAKING. ON MANAGER PROTEIN. IV ACCESS ON L HAND #22 INTACT AND PATENT. NO S/S OF INFILTRATION. NO C/O PAIN OR DISCOMFORT. NO ACUTE DISTRESS. ALL SAFETY MEASURES IN PLACE. PLACE CALL LIGHT WITHIN REACH. BED LOCKED AND IN LOWEST POSITION. SIDE RAILS UP X2 . WILL CONTINUE TO MONITOR THROUGHOUT SHIFT.
[2021-03-11 07:30] LABS: BASOPHILS % (AUTO) 0.2 % (0.0-2.0); HEMATOCRIT 37 % (33-45); HEMOGLOBIN 12.8 g/dL (11.5-14.8); LYMPHOCYTES # (AUTO) 1.1 K/uL (0.8-4.8); LYMPHOCYTES % (AUTO) 14.7 % (20.0-44.0); MEAN CORPUSCULAR HGB CONC 34 g/dl (31.0-36.0); MEAN CORPUSCULAR VOLUME 84 fL (82-100); MONOCYTES # (AUTO) 0.8 K/uL (0.1-1.30); MONOCYTES % (AUTO) 9.7 % (2.0-12.0); NEUTROPHILS # (AUTO) 5.8 K/uL (1.8-8.9); NEUTROPHILS % (AUTO) 74.4 % (43.0-81.0); PLATELET COUNT (AUTO) 414 K/uL (150-450); RED BLOOD CELL COUNT(AUTO) 4.42 MIL/uL (4.0-5.2); WHITE BLOOD COUNT (AUTO) 7.8 K/uL (4.3-11.0)
[2021-03-11 07:50] LABS: CALCIUM, SERUM 10.4 mg/dL (8.5-10.1); CREATININE 0.9 mg/dL (0.6-1.3); POTASSIUM 4.1 mmol/L (3.5-5.1)
[2021-03-11 08:00] VITALS: BP 120/69
--- NOTE | 2021-03-11 08:20 | NUR ---
COMPANY TRUCK DRIVER NOTES PT IN BED, AWAKE, ALERT AND ORIENTED, NO COMPLAINT OF PAIN, NOT IN DISTRESS, CALL LIGHT WITHIN REACH, NEEDS ATTENDED.
[2021-03-11] MEDS: DEXAMETHASONE SOD PHOSPHATE 10 MG/ML VIAL IV SCH (08:38)
[2021-03-11] MEDS: HYDROCHLOROTHIAZIDE PO SCH (08:38)
[2021-03-11] MEDS: OLMESARTAN PO SCH (08:38)
[2021-03-11] MEDS ORDERED: APIX5TAB PO (10:38)
[2021-03-11] MEDS ORDERED: DEXA10VI2 PO (10:38)
[2021-03-11] MEDS ORDERED: FAMO-131 PO (10:38)
[2021-03-11] MEDS ORDERED: DEXA4TAB PO (11:05)
[2021-03-11 12:00] VITALS: BP 116/61
--- NOTE | 2021-03-11 12:23 | NUR ---
COMPUTER TRAINING SPECIALIST NOTES PT IN BED, EATING LUNCH, NOT IN DISTRESS, O2 SAT 88% ON RA, PT PLACED ON O2 AT 2LPM VIA NASAL CANNULA, O2 SAT AT 96%, NEEDS ATTENDED.
--- NOTE | 2021-03-11 13:30 | NUR ---
TANKERMAN NOTES PT SITTING IN BED, NO COMPLAINT OF PAIN OR ANY DISCOMFORT, NOT IN DISTRESS, SEEN BY DR. WOODWARD, DISCHARGE AND MEDICATION INSTRUCTIONS PROVIDED TO PT, VERBALIZED UNDERSTANDING, BELONGINGS ACCOUNTED FOR, NEW PRESCRIPTIONS ELECTRONICALLY SENT BY MD TO PT'S PREFERRED PHARMACY, ASSISTED PT TO HOSPITAL LOBBY VIA WHEELCHAIR, PICKED UP BY DAUGHTER, LEFT VIA PRIVATE CAR, IN STABLE CONDITION.
--- NOTE | 2021-03-14 14:30 | NUR ---
+COVID PER LAB. LEFT VOICEMAIL
== END 2021-03-11 13:28 | disposition home or self-care (01) | DRG 177 ==
LOC: ER 17:55 → TELE1 03-06 00:06
PROVIDERS: ADMIT Family Medicine; ATTEND Nurse Practitioner Acute Care
PROC: XW033E5 Introduction of Remdesivir Anti-infective into Peripheral Vein, Percutaneous Approach, New Technology Group 5 (ICD-10-PCS; principal; 2021-03-07)
DX: U07.1 COVID-19 (principal); J96.01 Acute respiratory failure with hypoxia; J12.82 Pneumonia due to coronavirus disease 2019; I42.9 Cardiomyopathy, unspecified; E44.0 Moderate protein-calorie malnutrition; D68.59 Other primary thrombophilia; E03.9 Hypothyroidism, unspecified; I10 Essential (primary) hypertension; Z85.3 Personal history of malignant neoplasm of breast; E87.6 Hypokalemia; E11.36 Type 2 diabetes mellitus with diabetic cataract; E11.65 Type 2 diabetes mellitus with hyperglycemia; R76.8 Other specified abnormal immunological findings in serum; Z74.09 Other reduced mobility
CPT/HCPCS: 36415; 71045-TC; 80048-TC; 80053-TC; 80076-TC; 82550-TC; 82728-TC; 83605-TC; 83615-TC; 83735-TC; 83880; 84100-TC; 84484-TC; 85025-TC; 85378-TC; 85610-TC; 85730-TC; 86140-TC; 87040-TC; 87081-TC; 93307-TC; A4216; C9803; G0378; J1100; J1650; J7030; J7050; J7060; U0003